=== PATIENT | female | born 1950 | race Caucasian/White ===

== ENCOUNTER 2018-04-25 07:08 | Inpatient (IN) | payer MEDICARE, BC | END 2018-04-28 15:30 | disposition home or self-care (01) | LOC: PAS IN 07:08 → ORTHO 4S 14:23 | PROC: 0RRK0JZ Replacement of Left Shoulder Joint with Synthetic Substitute, Open Approach (ICD-10-PCS; principal; 2018-04-25 10:40) | PROC: 0LS40ZZ Reposition Left Upper Arm Tendon, Open Approach (ICD-10-PCS; 2018-04-25 10:40) | DX: M19.112 Post-traumatic osteoarthritis, left shoulder (principal); M75.122 Complete rotator cuff tear or rupture of left shoulder, not specified as traumatic ==

== ENCOUNTER 2018-08-07 16:37 | Emergency (ER) | payer MEDICARE, BC ==
[~2018-08-07] VITALS: Ht 167.6 cm; Wt 80.0 kg
[~2018-08-07 16:37] MED LIST: ATOR10TA87 PO; CHOL100046 PO; GABA300C PO; LEVO75TA56 PO; LISI-604 PO; METF500T PO; QUIN324C PO; VITC500T PO
--- NOTE | 2018-08-07 17:02 | NUR ---
PT IS 67 YO FEMALE C/O BILATERAL KNEE PAIN AND LEFT WRIST PAIN S/P GRD LEVEL FALL AT APPROX 1530, PT TRIPPED AND FELL ON CONCRETE LANDING ON KNEES, H/O LEFT SHOULDER REPLACEMENT IN APRIL, REHAB IS GOING WELL PER PT
[2018-08-07] MEDS ORDERED: HYDROcodone/acetaminophen 5mg/325mg tablet PO ONE (18:40)
--- NOTE | 2018-08-07 19:04 | NUR ---
SELF PROPELLED DREDGE OPERATOR AT BEDSIDE TO PLACE SPLINT ON LEFT WRIST
[2018-08-07] MEDS ORDERED: HYDR-4353 PO (19:40)
[2018-08-07 19:43] VITALS: BP 160/63
--- NOTE | 2018-08-08 10:21 | NUR ---
PT CALLED STATING THAT SHE IS HAVING DIFFICULTY GETTING A FOLLOW-UP APPT FOR THE FX OF HER LT RADIAS. STATES THAT SHE CALL [facility] AND THEY WOULD NOT MAKE AN APPT UNTIL THEY KNEW WHAT ORTHOPEDIST SHE SAW IN THE ER. PT REQUESTED THAT A CALL BE MADE TO [facility] TO VERIFY STEPS NEED TO TAKE TO GET AN APPT. CALL MADE TO [facility] REQUESTED AND IT WAS REALIZED THAT PT MISUNDERSTOOD INSTRUCTIONS AND NEEDED TO CALL [facility] FOR FOLLOW-UP AND THAT THEY WOULD THEN MAKE THE REFERRAL TO [facility]. PT WAS CALLED BACK AND INFORMED THAT SHE NEEDED TO CALL [facility] FOR FOLLOW-UP AND A REFERRAL AND APPT WOULD THEN BE MADE FOR [facility] AT THAT TIME. PT CALLED BACK TO THE ER, SHE ATTEMPTED TO MAKE AN APPT FOR FOLLOW-UP AT [facility]. SHE WAS TOLD THAT DR ANSARI IS OUT OF THE OFFICE UNTIL 08/13/18 AND WOULD NOT BE ABLE TO REVIEW HER CASE UNTIL THEN AND THAT THEY WOULD NOT BE ABLE TO GIVE HER AN APPT UNTIL AFTER 08/25 DUE TO ALL APPTS BEING BOOKED OUT. PT WAS ADVISED TO CALL [facility] AND EXPLAIN THE SITUATION AND POSSIBLY SCHED A FOLLOW-UP APPT WITH THEIR OFFICE AND NOT [facility].
== END 2018-08-07 19:46 | disposition home or self-care (01) ==
LOC: ER 16:37
DX: S52.592A Other fractures of lower end of left radius, initial encounter for closed fracture (principal); M25.561 Pain in right knee; M25.562 Pain in left knee; E78.00 Pure hypercholesterolemia, unspecified; I10 Essential (primary) hypertension; E11.9 Type 2 diabetes mellitus without complications; Z88.1 Allergy status to other antibiotic agents; Z88.2 Allergy status to sulfonamides; Z79.84 Long term (current) use of oral hypoglycemic drugs; W01.0XXA Fall on same level from slipping, tripping and stumbling without subsequent striking against object, initial encounter; Y93.89 Activity, other specified; Y92.89 Other specified places as the place of occurrence of the external cause; Y99.8 Other external cause status
CPT/HCPCS: 29105; 29125; 73110; 73564; 99284